=== PATIENT | female | born 1970 | race Caucasian/White ===

== ENCOUNTER 2016-08-14 22:35 | Emergency (ER) | payer BC ==
--- NOTE | 2016-08-14 22:44 | EDPHY ---
H & P HPI/ROS: This 46-year-old female with no significant past medical history presents with nausea and vomiting that started 0.5 hours ago. She underwent an abdominoplasty and breast reduction today from 8am to about 2pm at another facility. She was prescribed oxycodone and ibuprofen for her postop pain. She was not given a prescription for antiemetics. She has been trying to take sips of water and snacks with her medication but immediately vomited everything up this evening. She called her surgeon and they advised her to come to the emergency department for a shot. She denies fever, chills, chest pain, shortness of breath, dysuria. She does have post op musculoskeletal chest wall discomfort and generalized abdominal wall discomfort. General Appearance: Alert, moderate distress. Eyes: Pupils equal and round no pallor or injection. ENT, Mouth: Mucous membranes moist. Respiratory: There are no retractions, lungs are clear to auscultation. Cardiovascular: Regular rate and rhythm. Chest Wall: deferred due to breast reduction today. Gastrointestinal: Abdominal exam deferred due to abdominoplasty today. Skin: Warm and dry, no rashes. Musculoskeletal: Neck supple, nontender. Extremities are symmetrical, full range of motion. Psychiatric: Patient is oriented X 3. DIFFERENTIAL DIAGNOSIS: After history and physical exam differential diagnosis was considered for [post op nausea and vomiting; medication (oxycodone) side effect.] REVIEW OF SYSTEMS: Constitutional: Negative Respiratory: [negative] Cardiac: [negative] Chest wall: Negative except for HPI Gastrointestinal: [negative except for HPI] Genitourinary: [negative] Musculoskeletal: [negative] Skin: [negative] Source: Patient Exam Limitations: No limitations - Medical/Surgical History PMH: Denied Hx Asthma: No Hx Diabetes: No Hx Cardiac Disease: No Other PMH: PSH: Abdominoplasty and Breast Reduction 08/14/2016 8am. - Family History Significant Family History: No pertinent family hx - Social History Smoking Status: Never smoked Alcohol Use: None Drug Use: None Constitutional: Initial Vital Signs Temperature (C) 36.4 C 08/14/16 23:03 Heart Rate 102 H 08/14/16 23:03 Respiratory Rate 18 08/14/16 23:03 Blood Pressure 141/86 H 08/14/16 23:03 O2 Sat (%) 94 08/14/16 23:03 O2 Delivery Mode Room Air Allergies/Adverse Reactions: metronidazole [From Flagyl] Allergy (Verified 08/14/16 23:01) Sulfa (Sulfonamide Antibiotics) Allergy (Verified 08/14/16 23:01) Home Medications: Medication Instructions Recorded Ibuprofen 08/14/16 Oxycodone HCl 08/14/16 Medical Decision Making ED Course/Re-evaluation: Patient with significant improvement after Zofran 4mg ODT. Given Phenergan 25mg suppository take home pack and well as Zofran ODT take home pack. Declined IVF or further work up. Will be in touch with her surgeon tomorrow. Differential Diagnosis: post op nausea, vomiting; medication adverse effect. - Data Points Medications Given: Discontinued Medications Diphenhydramine HCl (Benadryl Injection) 50 mg IM EDNOW ONE Stop: 08/14/16 23:27 Last Admin: 08/15/16 00:01 Dose: Not Given Ondansetron HCl (Zofran Odt) 4 mg PO EDNOW ONE Stop: 08/14/16 23:06 Last Admin: 08/14/16 23:00 Dose: 4 mg Ondansetron HCl (Zofran Odt 4 Mg Prepack#2) 1 btl TAKEHOME EDNOW ONE Stop: 08/14/16 23:39 Last Admin: 08/14/16 23:55 Dose: 1 btl Promethazine HCl (Phenergan Rectal) 25 mg [place] EDNOW ONE Stop: 08/14/16 23:32 Last Admin: 08/14/16 23:40 Dose: 25 mg Promethazine HCl (Phenergan 25mg Supp Prepack#4) 1 btl TAKEHOME EDNOW ONE Stop: 08/14/16 23:38 Last Admin: 08/14/16 23:55 Dose: 1 btl Departure - Departure Disposition: Home, Routine, Self-Care Clinical Impression: Nausea and vomiting Instructions: Acute Nausea and Vomiting (ED) Additional Instructions: Follow up with your surgeon as planned. Return to the ER sooner if any further problems or concerns. Referrals: TANA SHELTON [Primary Care Provider] - As per Instructions Print Language: French
[2016-08-14] MEDS ORDERED: ONDANSETRON DISINTEGRATING 4 MG TAB ONE (22:55)
[2016-08-14 23:04] VITALS: BP 141/86; PULSE 102; RESP 18; TEMP 97.5; O2SAT 94
[2016-08-14] MEDS ORDERED: ONDANSETRON DISINTEGRATING 4 MG TAB PO ONE (23:05)
[2016-08-14] MEDS ORDERED: PROMETHAZINE HCL 25 MG SUPPR PR ONE ×2 (23:31→23:32)
[2016-08-14] MEDS ORDERED: PROMETHAZINE 25MG SUPP PREPK#4 BTL TAKEHOME ONE ×2 (23:37→23:38)
[2016-08-14] MEDS ORDERED: ONDANSETRON 4MG PREPACK#2 BTL TAKEHOME ONE ×2 (23:37→23:38)
== END 2016-08-14 23:55 | disposition home or self-care (01) ==
LOC: CED 22:35
DX: R11.2 Nausea with vomiting, unspecified (principal)